=== PATIENT | male | born 1995 | race Hispanic/Latino ===

== ENCOUNTER 2018-01-26 14:52 | Emergency (ER) | payer OTHER ==
[2018-01-26 15:38] VITALS: BP 163/80; PULSE 54; RESP 16; TEMP 98.2; O2SAT 99
--- NOTE | 2018-01-26 16:39 | ED PDOC ---
Lower Extremity Pain/Injury Time Seen by Provider: 01/26/18 15:05 Chief Complaint (Nursing): Lower Extremity Problem/Injury Chief Complaint (Provider): Lower Extremity Problem/Injury History Per: Patient History/Exam Limitations: no limitations Onset/Duration Of Symptoms: Other (x1 month) Current Symptoms Are (Timing): Still Present Additional Complaint(s): 22 year old male presents to the ED for evaluation of his right ankle. Patient reports 1 month ago, he injured his right ankle playing basket ball and went to see his PMD lsat week. His PMD sent him to the ED for evaluation by podiatry after patient's X-ray showed medial malleolus fracture. PMD: Lance Knapp Past Medical History Reviewed: Historical Data, Nursing Documentation, Vital Signs Vital Signs: Last Vital Signs Temp 98.2 F 01/26/18 15:36 Pulse 54 L 01/26/18 15:36 Resp 16 01/26/18 15:36 BP 163/80 H 01/26/18 15:36 Pulse Ox 99 01/26/18 15:36 - Medical History PMH: No Chronic Diseases - Surgical History Surgical History: No Surg Hx - Family History Family History: States: Unknown Family Hx - Living Arrangements Living Arrangements: With Family - Social History Current smoker - smoking cessation education provided: No - Home Medications Home Medications: Ambulatory Orders Medication Instructions Recorded Home Med 1 unit .ROUTE PRN #1 ea 01/26/18 - Allergies Allergies/Adverse Reactions: Allergies Allergy/AdvReac Type Severity Reaction Status Date / Time No Known Allergies Allergy Verified 01/26/18 15:36 Review of Systems ROS Statement: Except As Marked, All Systems Reviewed And Found Negative Constitutional: Negative for: Fever, Chills Musculoskeletal: Positive for: Other (Right ankle injury) Physical Exam - Reviewed Nursing Documentation Reviewed: Yes Vital Signs Reviewed: Yes - Physical Exam Appears: Positive for: Non-toxic, No Acute Distress Head Exam: Positive for: ATRAUMATIC, NORMOCEPHALIC Skin: Positive for: Normal Color, Warm, Dry Eye Exam: Positive for: Normal appearance Neck: Positive for: Normal Cardiovascular/Chest: Negative for: Bradycardia, Tachycardia Respiratory: Negative for: Respiratory Distress Pulses-Dorsalis Pedis (R): 2+ Pulses-Post. Tibialis (R): 2+ Extremity: Positive for: Normal ROM, Tenderness (medial malleolous ), Deformity (protrusion, lateral ankle ). Negative for: Swelling Neurologic/Psych: Positive for: Alert, Oriented. Negative for: Motor/Sensory Deficits - ECG O2 Sat by Pulse Oximetry: 99 (RA) Pulse Ox Interpretation: Normal Medical Decision Making Medical Decision Making: Initial Impression: Right ankle injury Initial Plan: --Right ankle X-ray Podiatry consult. Scribe Attestation: Documented by Ruben Wolfe acting as a scribe for Valarie CANALES. Provider Scribe Attestation: All medical record entries made by the Scribe were at my direction and personally dictated by me. I have reviewed the chart and agree that the record accurately reflects my personal performance of the history, physical exam, medical decision making, and the department course for this patient. I have also personally directed, reviewed, and agree with the discharge instructions and disposition. Disposition - Clinical Impression Clinical Impression: Ankle fracture - Disposition Referrals: Podiatry Clinic [Outside] Disposition: Routine/Home Disposition Time: 17:35 Condition: STABLE Prescriptions: Home Med 1 unit .ROUTE PRN #1 ea Instructions: Ankle Fracture Forms: [employer] (Swazi)
--- NOTE | 2018-01-26 17:08 | RAD ---
Date of service: 01/26/2018 PROCEDURE: Right Ankle Radiographs. HISTORY: right ankle fracture COMPARISON: None FINDINGS: BONES: An old healed chip or avulsion fracture seen related to the medial malleolus without definite acute fracture identified at this time. Remaining in osseous elements of the right ankle appear intact and unremarkable. JOINTS: Normal. No osteoarthritis. Ankle mortise maintained. Talar dome intact SOFT TISSUES: Normal. OTHER FINDINGS: None. IMPRESSION: No acute fracture or dislocation. Old chip or avulsion fracture seen related to the medial malleolus. If clinical concern for acute fracture remains and follow-up CT or MRI are available.
--- NOTE | 2018-01-26 17:48 | CP.PCM.CON ---
History of Present Illness - History of Present Illness History of Present Illness: 22 yo male with no significant medical history presents to the ED for pain in the right ankle. Patient states he was playing basketball a month ago and turned his foot inwards and its been painful ever since. Pain intensity has decreased significantly however, when he stands on his toes minimal pain is noted. Patient states initially it was very swollen, the swelling has gone down in the last month. Patient rates his pain 4/10, does not take pain medications. He was unable to come to the ED earlier because he has just started a new job. Patient went to his PCP this morning and after taking x-rays of the ankle he was advised to present to the ED. Past medical history: none Past surgical history: left knee meniscal repair Allergies: NKFDA Social history: smokes marijuana daily, denies etoh, denies smoking ciagrettes Past Patient History - Past Social History Smoking Status: Never Smoked - PSYCHIATRIC Hx Substance Use: No - SURGICAL HISTORY Hx Surgeries: No Meds Home Medications: Home Medication List Medication Instructions Recorded Confirmed Type Home Med 1 unit .ROUTE PRN #1 ea 01/26/18 Rx Allergies/Adverse Reactions: Allergies Allergy/AdvReac Type Severity Reaction Status Date / Time No Known Allergies Allergy Verified 01/26/18 15:36 Physical Exam - Constitutional Appears: Well, Non-toxic, No Acute Distress - Head Exam Head Exam: ATRAUMATIC, NORMOCEPHALIC - Extremities Exam Additional comments: Right lower extremity exam: Vascular: DP/PT 2/4, CFT <3 secs x5, TG warm to warm, minimal nonpitting edema noted perimalleolar, no erythema noted Derm: No open lesions, minimal nonpitting edema noted perimalleolar, no erythema , no ecchymosis, no clinical signs of infection Neuro: protective sensation intact via ipswich 09/03 Ortho: Pain with eversion of the STJ, no pain with ankle ROM, minimal pain on deltoid ligament palpation. - Neurological Exam Neurological exam: Alert, Oriented x3 - Psychiatric Exam Psychiatric exam: Normal Affect, Normal Mood - Skin Skin Exam: Normal Color Results - Vital Signs Recent Vital Signs: Last Vital Signs Temp 98.2 F 01/26/18 15:36 Pulse 54 L 01/26/18 15:36 Resp 16 01/26/18 15:36 BP 163/80 H 01/26/18 15:36 Pulse Ox 99 08/27/18 17:35 Assessment & Plan - Assessment and Plan (Free Text) Assessment: 22 yo male seen in the ED with no significant past medical history with right ankle pain; medial malleolus avulsion fracture with possible deltoid ligament tear/rupture. Plan: Patient seen and evaluated History and plan discussed with the attending in detail, Dr. Fritz Chart and vitals reviewed; afebrile X-ray of the right ankle reviewed: avulsion fracture of the medial malleolus with increased medial clear space consistent with possible deltoid ligament rupture/tear. Patient advised to refrain from physical activity Air cast dispensed, patient to use it at all times Right lower extremity MRI- leg, ankle and foot rx given Patient to make an appointment with podiatry clinic once MRI is taken Patient to continue elevating right lower extremity OTC tylenol prn Patient to follow up in podiatry clinic Thank you for the consult
== END 2018-01-26 18:00 | disposition home or self-care (01) ==
LOC: H.ER 14:52
DX: S82.891A Other fracture of right lower leg, initial encounter for closed fracture (principal); X58.XXXA Exposure to other specified factors, initial encounter; Y93.67 Activity, basketball